=== PATIENT | male | born 1980 | race American Indian/Alaskan Native ===

== ENCOUNTER 2022-01-13 08:30 | Emergency (ER) | payer SELFPAY ==
[2022-01-13 08:56] VITALS: BP 136/80
[2022-01-13] MEDS ORDERED: HYDROcodone/ACETAMINOPHEN 5-325 MG TAB PO STA (09:41)
--- NOTE | 2022-01-13 09:42 | Emergency Department Report ---
ED ENT HPI - General Chief complaint: Dental/Oral Stated complaint: TOOTH PAIN Time Seen by Provider: 01/13/22 09:38 Source: patient Mode of arrival: Ambulatory Limitations: No Limitations - History of Present Illness MD complaint: tooth pain -: Gradual Location: tooth # 1 - pain region Consistency: constant Improves with: none Worsens with: none Context- Dental: history of dental caries, poor dental care Context- Ear: recent illness - Related Data Previous Rx's Medication Instructions Recorded Last Taken Type Amoxicillin [Amoxicillin TAB] 875 mg PO BID #20 tablet 01/13/22 Unknown Rx Chlorhexidine Mouthwash [Peridex] 15 ml MM BID #1 bottle 01/13/22 Unknown Rx Ketorolac [Toradol] 10 mg PO Q6H PRN #15 tablet 01/13/22 Unknown Rx Lidocaine Viscous 2% 5 ml MM Q3H PRN #120 udc 01/13/22 Unknown Rx Allergies Allergy/AdvReac Type Severity Reaction Status Date / Time No Known Allergies Allergy Unverified 01/13/22 08:56 ED Dental HPI - General Chief complaint: Dental/Oral Stated complaint: TOOTH PAIN Time Seen by Provider: 01/13/22 09:38 Source: patient Mode of arrival: Ambulatory Limitations: No Limitations - Related Data Previous Rx's Medication Instructions Recorded Last Taken Type Amoxicillin [Amoxicillin TAB] 875 mg PO BID #20 tablet 01/13/22 Unknown Rx Chlorhexidine Mouthwash [Peridex] 15 ml MM BID #1 bottle 01/13/22 Unknown Rx Ketorolac [Toradol] 10 mg PO Q6H PRN #15 tablet 01/13/22 Unknown Rx Lidocaine Viscous 2% 5 ml MM Q3H PRN #120 udc 01/13/22 Unknown Rx Allergies Allergy/AdvReac Type Severity Reaction Status Date / Time No Known Allergies Allergy Unverified 01/13/22 08:56 ED Review of Systems ROS: Stated complaint: TOOTH PAIN Other details as noted in HPI ED Past Medical Hx - Past Medical History Previous Medical History?: No - Surgical History Additional Surgical History: L knee, R eye - Medications Home Medications: Home Medications Medication Instructions Recorded Confirmed Last Taken Type Amoxicillin [Amoxicillin TAB] 875 mg PO BID #20 tablet 01/13/22 Unknown Rx Chlorhexidine Mouthwash [Peridex] 15 ml MM BID #1 bottle 01/13/22 Unknown Rx Ketorolac [Toradol] 10 mg PO Q6H PRN #15 tablet 01/13/22 Unknown Rx Lidocaine Viscous 2% 5 ml MM Q3H PRN #120 udc 01/13/22 Unknown Rx ED Physical Exam - General Limitations: No Limitations ED Course Vital Signs 01/13/22 08:41 Temperature 97.6 F Pulse Rate 58 L Respiratory 18 Rate Blood Pressure 136/80 [Left] O2 Sat by Pulse 100 Oximetry Critical care attestation.: If time is entered above; I have spent that time in minutes in the direct care of this critically ill patient, excluding procedure time. ED Disposition Disposition: 01 HOME / SELF CARE / HOMELESS Condition: Stable Instructions: Dental Abscess, [id number], Dental Caries, Pediatric, Tooth Avulsion, Acute Pain, Adult, Tooth Injuries Prescriptions: Amoxicillin [Amoxicillin TAB] 875 mg PO BID #20 tablet Lidocaine Viscous 2% 5 ml MM Q3H PRN #120 udc PRN Reason: Pain, Moderate (4-6) Chlorhexidine Mouthwash [Peridex] 15 ml MM BID #1 bottle Ketorolac [Toradol] 10 mg PO Q6H PRN #15 tablet PRN Reason: Pain Referrals: [facility] [Outside] - 3-5 Days [facility] [Outside] - 3-5 Days
== END 2022-01-13 10:45 | disposition home or self-care (01) ==
LOC: ED 08:30
DX: K08.89 Other specified disorders of teeth and supporting structures (principal)
CPT/HCPCS: 99282